=== PATIENT | male | born 1950 | race Caucasian/White ===

== ENCOUNTER 2018-08-17 06:51 | Observation (INO) | payer OTHER ==
[~2018-08-17] VITALS: Ht 172.7 cm; Wt 89.1 kg
--- NOTE | ~2018-08-17 | EKG ---
[place] [address] [facility] [place] [address] ELECTROCARDIOGRAM REPORT Name: ZEE LOPEZ 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: FRANK : 1950 Requested By: Eben Dwyer Order Number: [id number] MD: Tremaine Desai Measurements Intervals [place] Rate: 52 P: 48 NM: 189 QRS: 5 QRSD: 94 T: 154 QT: 437 QTc: 407 Interpretive Statements Sinus bradycardia Repol abnrm suggests ischemia, lateral leads Compared to ECG 03/29/2016 07:34:35 No significant changes Electronically Signed On 08-17-2018 8:25:53 NURSE QUALITY by Tremaine Desai [email or web address] <ELECTRONICALLY SIGNED> By: Tremaine Desai MD, [facility] 08/17/18824 9 9 Tremaine Desai MD, [facility] /EPI
--- NOTE | ~2018-08-17 | CATHLAB ---
[facility] [address] [place] [address] INVASIVE PROCEDURE REPORT Name: ZEE LOPEZ Room #: 214-P [facility] [place] ..#: [id number] Admission: 08/17/18 Attend Phys: Eben Dwyer, Discharge: 08/18/18 Date of : 50 Date of Service: 08/19/18 1156 Report #: [id number] THIS REPORT FOR: //name// APPROVED REPORT Study performed: 08/17/2018 07:22:46 Patient Details Patient Status: Out-Patient Room #: The patient is a 67 year-old male Event Personnel Eben Dwyer Visual Coordinator, Jason Soria Computer Graphics Illustrator, Savanah Dominguez RTR, METALIZER Monitor, Mateo, Cinthia RN Monitor, Chencho Leo Scrub Procedures Performed Art Access - R femoral artery* Left Heart Cath Coronaries, Bypass Grafts [id number] LHCCORCABG MICHAEL Place w/wo Plasty Single RCA 757767 06629 Initial Mod Sed Same Phys/QHP Gr5y 368574 00297 Mod Sed Same Phys/QHP Ea 168309 Aortogram Abdominal Peripheral Angio 114562 Indication Positive stress test Procedure Narrative The Right Groin^ was infiltrated with 1% Lidocaine subcutaneous anesthesia. A PINNACLE 6FR Sheath #[id number] sheath was inserted into the RFA^. Coronary angiography was performed using coronary diagnostic catheters. The right coronary system was accessed and visualized with a JR4 catheter. The left coronary system was accessed and visualized with a JL4 catheter. The left ventricle was accessed and visualized with a PIGTAIL catheter. Left ventriculogram was performed in 30 degree projection. An aortogram of the abdominal aorta was performed. Closure device was deployed with a 6 Fr MYNXGRIP 6/7F #[id number]. There was no hematoma. Intraoperative Conscious Sedation Sedation start time: 08:21 Case end Time: 09:25 Fentanyl 50 mcg Versed 1.5 mg Fluoro Time: 1653.00 minutes Dose: DAP 99251.70 cGycm2 1717 mGy [facility] [address] [place] [address] INVASIVE PROCEDURE REPORT Name: ZEE LOPEZ Room #: 214-P [facility].#: [id number] Admission: 08/17/18 Attend Phys: Eben Dwyer, Discharge: 08/18/18 Date of : 50 Date of Service: 08/19/18 1156 Report #: [id number] Contrast Type and Amount: Omnipaque 170 ml Hemodynamics The aortic pressure is 169/77 mmHg with a mean of 116 mmHg. The left ventricular pressure is 161/10 mmHg with a mean of mmHg. The left ventricular end diastolic pressure is 23 mmHg. PCI Technique Lesion Percutaneous coronary intervention was performed on the Ostium. A Luge Wire .014 x 182CM #[id number] Guide Catheter was used to engage the ostium. A LAUNCHER 6FR JR 4 #[id number] Interventional Guidewire was used to cross the lesion. BALLOON DILATION A Balloon catheter Sprinter OTW 2.5 x 12 #[id number] was inserted and inflated up to 16.00atm for 30seconds. Additional Inflation: 18.00atm for 31seconds. STENT DEPLOYMENT A drug-eluting stent RESOLUTE MISTY OTW 2.75 X 12 #[id number] was inserted and inflated up to 18.00atm for 21seconds. Additional Inflation: 20.00atm for 16seconds. POST STENT DEPLOYMENT BALLOON DILATION A Balloon catheter TREK NC OTW 3.0 X 12 #[id number] was inserted and inflated up to 24.00atm for 35seconds. Conclusion #1 successful PTCA stent of an ostial vein graft lesion to the PDA subtotaled placement of a 2.75 x 12 Misty postdilated to 3.1 mm with high pressure balloon 0% residual SUJATA grade 3 flow #2 [place] right system is high-grade stenosis throughout provides some competitive filling to the PDA #3 the [place] left system is essentially occluded #4 there is a ORLANDO graft to the LAD with a free MING takeoff to the OM all of which is widely patent with mild irregularities in the LAD and OM system. #5 left ventricular function ears to be lower limits of normal EF 50% range #6 abdominal aorta is mildly ectatic and calcified but no significant aneurysm or stenosis Recommendations and plan continue aggressive risk factor [address] [address] INVASIVE PROCEDURE REPORT Name: ZEE LOPEZ Room #: 214-P [facility] [place] M.R.#: [id number] Admission: 08/17/18 Attend Phys: Eben Dwyer, Discharge: 08/18/18 Date of : 50 Date of Service: 08/19/18 1156 Report #: [id number] modification. Dual antiplatelet therapy times at least one year. Transfer to [facility] to follow stent protocol <ELECTRONICALLY SIGNED> By: Eben Dwyer MD, FACC 08/19/18 1156 115 115 Eben Dwyer MD, FACC /INF
--- NOTE | ~2018-08-17 | EKG ---
[place] [address] [facility] [place] [address] ELECTROCARDIOGRAM REPORT Name: ZEE LOPEZ Room #: 214-P [facility] M.R.#: [id number] Admission: 08/17/18 Attend Phys: Eben Dwyer MD, Discharge: Date of : 50 Report #: [id number] THIS REPORT FOR: //name// [facility] Test Date: 2018-08-18 Test Time: 07:41:05 Pat Name: ZEE LOPEZ Department: Room: 214 P Gender: M Resawyer: MELBA : 1950 Requested By: Kelsy Clay Order Number: [id number] MD: Tremaine Desai Measurements Intervals [place] Rate: 55 P: 62 ME: 174 QRS: 31 QRSD: 93 T: 126 QT: 456 QTc: 437 Interpretive Statements Sinus rhythm Nonspecific repol abnormality, lateral leads Compared to ECG 08/17/2018 07:20:12 No significant change was found Electronically Signed On 08-18-2018 9:24:20 INSULATION BLOWER by Tremaine Desai [email or web address] <ELECTRONICALLY SIGNED> By: Tremaine Desai MD, [facility] 08/18/18 0924 0 Tremaine Desai MD, [facility] /EPI
--- NOTE | ~2018-08-17 | D ---
[facility] [place] [address] DISCHARGE SUMMARY Name: ZEE LOPEZ Room #: 214-P [facility] M.R.#: [id number] Admission: 08/17/18 Attend Phys: Eben Dwyer MD, Discharge: Date of : 50 Report #: [id number] THIS REPORT FOR: //name// CC: Eben Gonzalez DO [facility] COURSE: The patient is a 67-year-old male admitted with an abnormal nuclear test prior bypass surgery. His stress test suggests inferolateral ischemia. Basically brought in, catheterization lab revealed a ORLANDO to an LAD with a MING that was taken down and attached as a jump graft from the ORLANDO to an OM. These were all widely patent systems. The [place] system left and right were occluded essentially. The right had some filling in it and it had actually improved because the graft to the PDA had a high-grade ostial lesion. Previously placed stent in that mid graft was widely patent that was placed in mid 2015. Subsequently, placed a 2.75 x 12 Kelvin stent. I postdilated that with a 3.0 noncompliant balloon to 3.2 high pressure. The final result was excellent with marked improvement in the flow through the graft and the PDA briskly filled. Laboratory work is unremarkable this morning. His groin is stable. No chest pain or angina overnight. No EKG changes are noted. He will be discharged to home on his home medications with the exception of we will discontinue the clopidogrel and place him on prasugrel 10 mg a day with a full aspirin for a month and then to decrease to a baby aspirin. In addition, atorvastatin 80, vitamin D, Lantus, Bystolic 5, quinapril 20 and levothyroxine. No lifting for 48 hours. No lying in tub, Jacuzzi or carey for a week. No MRI or dental work for 3 months. He will decrease to a full baby aspirin after 1 month. LABORATORY WORK: Creatinine 1.1, potassium 4.3, troponin is 0.08, not significant. H and H was not obtained, but there was no significant blood loss during this procedure. DISCHARGE DIAGNOSES: 1. Coronary artery disease with successful drug-eluting stent to the ostial vein graft to the posterior descending artery, preserved left ventricular function. 2. Hypertension. 3. Diabetes. 4. Hypercholesterolemia. FOLLOWUP: Scheduled with myself in 3 months. Follow up with Dr. Anna Gonzalez as scheduled. [address] [address] DISCHARGE SUMMARY Name: ZEE LOPEZ Room #: 214-P [facility] Josseline Nicekrson#: [id number] Admission: 08/17/18 Attend Phys: Eben Dwyer MD, Discharge: Date of : 50 Report #: [id number] Thank you for asking me to assist in the care of this patient. By: 0813 0949 Eben Dwyer MD, FACC /nt
[~2018-08-17 06:51] MED LIST: ASPIRIN325 PO; ATORVASTATIN CA40 MG PO; BYSTOLIC 5 MG5 M1 PO; HUMALOG100 UNIT/2 SQ; KRILL OIL 3001 EACH PO; LANTUS100 UNIT/M SQ; LEVOTHYROXIN0.137 M1 PO; PLAVIX 75 MG TA75 M1 PO; PROZAC20 MG PO; QUINAPRIL 20 MG20 MG PO; SUPER B COMPLE150 MG PO; VITAMIN D1000 UNI1 PO
[2018-08-17 07:10] VITALS: BP 136/54
[2018-08-17 07:16] LABS: HEMATOCRIT 38.6 % (42.0-52.0); HEMOGLOBIN 13.5 gm/dL (14.0-18.0); MCHC 34.9 g/dL (28.0-37.0); MCV 91.6 fL (80.0-100.0); RBC 4.22 mil/uL (4.50-6.00); WBC 5.5 thou/uL (4.0-11.0)
[2018-08-17] MEDS ORDERED: IMDUR 60 MG TAB60 M1 PO (07:31)
[2018-08-17 07:41] LABS: CALCIUM 9.1 mg/dL (8.5-10.1)
[2018-08-17 14:00] VITALS: BP 136/54
[2018-08-17 16:45] VITALS: BP 121/51
[2018-08-17 19:58] VITALS: BP 132/51
[2018-08-17 23:32] VITALS: BP 130/71
[2018-08-18 04:10] VITALS: BP 139/62
[2018-08-18 04:17] LABS: CREATININE 1.1 mg/dL (0.7-1.3); POTASSIUM 4.3 mmol/L (3.5-5.1); TROPONIN-I 0.08 ng/mL (<0.06)
[2018-08-18] MEDS ORDERED: EFFIENT10 MG PO (08:13)
[2018-08-18 09:47] VITALS: BP 139/62
== END 2018-08-18 10:05 | disposition home or self-care (01) ==
LOC: CATH 06:51 → 2N 11:06 → CATH 14:23 → ENTRNSPT 08-18 09:58 → EDTRNSPTSTS 08-18 10:03 → 2N 08-18 10:05
PROVIDERS: Internal Medicine Cardiovascular Disease; Nurse Practitioner Adult Health
DX: I25.119 Atherosclerotic heart disease of native coronary artery with unspecified angina pectoris (principal); I65.23 Occlusion and stenosis of bilateral carotid arteries; I10 Essential (primary) hypertension; E11.319 Type 2 diabetes mellitus with unspecified diabetic retinopathy without macular edema; E78.00 Pure hypercholesterolemia, unspecified; G47.33 Obstructive sleep apnea (adult) (pediatric); E78.5 Hyperlipidemia, unspecified; E03.9 Hypothyroidism, unspecified; G25.81 Restless legs syndrome; Z98.890 Other specified postprocedural states; Z79.82 Long term (current) use of aspirin; Z79.899 Other long term (current) drug therapy; Z95.5 Presence of coronary angioplasty implant and graft; Z79.4 Long term (current) use of insulin

== ENCOUNTER → 2020-07-21 | Outpatient (CLI) | payer OTHER ==
[~2020-07-21] MED LIST changes: +EFFIENT10 MG PO; +IMDUR 60 MG TAB60 M1 PO
== END ==
LOC: SJCVCIMAG 08:55
PROVIDERS: ATTEND Internal Medicine Cardiovascular Disease
DX: I65.23 Occlusion and stenosis of bilateral carotid arteries (principal); I25.119 Atherosclerotic heart disease of native coronary artery with unspecified angina pectoris; I77.9 Disorder of arteries and arterioles, unspecified; Z79.899 Other long term (current) drug therapy

== ENCOUNTER → 2020-10-31 | Outpatient (CLI) | payer OTHER | LOC: SJCVC 14:40 | PROVIDERS: ATTEND Internal Medicine Cardiovascular Disease | DX: R94.31 Abnormal electrocardiogram [ECG] [EKG] (principal); I25.810 Atherosclerosis of coronary artery bypass graft(s) without angina pectoris; I10 Essential (primary) hypertension; E78.00 Pure hypercholesterolemia, unspecified; E11.9 Type 2 diabetes mellitus without complications; I77.9 Disorder of arteries and arterioles, unspecified; R53.83 Other fatigue; I25.10 Atherosclerotic heart disease of native coronary artery without angina pectoris; E78.5 Hyperlipidemia, unspecified; E03.9 Hypothyroidism, unspecified; E66.9 Obesity, unspecified; Z95.1 Presence of aortocoronary bypass graft; Z79.4 Long term (current) use of insulin; Z79.82 Long term (current) use of aspirin; Z79.899 Other long term (current) drug therapy; F32.9 Major depressive disorder, single episode, unspecified ==

== ENCOUNTER → 2021-06-20 | Outpatient (CLI) | payer OTHER | LOC: SJCVCIMAG 05-31 09:04 | PROVIDERS: ATTEND Internal Medicine Cardiovascular Disease | DX: I65.23 Occlusion and stenosis of bilateral carotid arteries (principal); R94.31 Abnormal electrocardiogram [ECG] [EKG]; I25.810 Atherosclerosis of coronary artery bypass graft(s) without angina pectoris; I77.9 Disorder of arteries and arterioles, unspecified; I10 Essential (primary) hypertension; E78.00 Pure hypercholesterolemia, unspecified; E11.9 Type 2 diabetes mellitus without complications; R00.1 Bradycardia, unspecified; R53.83 Other fatigue; E78.5 Hyperlipidemia, unspecified; E03.9 Hypothyroidism, unspecified; G25.81 Restless legs syndrome; K75.9 Inflammatory liver disease, unspecified; B35.8 Other dermatophytoses; Z79.4 Long term (current) use of insulin; Z95.1 Presence of aortocoronary bypass graft; Z79.82 Long term (current) use of aspirin; Z79.899 Other long term (current) drug therapy ==